=== PATIENT | female | born 1955 | race Hispanic/Latino ===

== ENCOUNTER 2018-03-08 07:12 | Emergency (ER) | payer OTHER, MEDICARE ==
[~2018-03-08 07:12] MED LIST: AMLO10TA4 PO; ASPI-555 PO; ATEN100T PO; ESOM40VI2 IV; GLIP10TA9 PO; INSLAN SQ; MECL-129 PO; METF850T2 PO; MONT10TA24 PO; MVIT PO; OMEG1CAP6 PO; SIMV20TA6 PO; SITA100T12 PO; TRAM50TA4 PO; VALS1TAB79 PO
[2018-03-08 08:00] LABS: BASOPHILS % (AUTO) 0.6 % (0.0-5.0); EOSINOPHILS % (AUTO) 1.7 % (0.0-8.0); HEMATOCRIT 30.5 % (36-48); LYMPHOCYTES % (AUTO) 25.7 % (21.0-51.0); MEAN CORPUSCULAR HEMOGLOBIN 26.4 pg (27.0-33.0); MEAN CORPUSCULAR HGB CONC 34.1 g/dL (32.0-36.0); MEAN CORPUSCULAR VOLUME 77.5 fL (79-99); MONOCYTES % (AUTO) 4.8 % (3.0-13.0); NEUTROPHILS % (AUTO) 67.2 % (40.0-77.0); PLATELET COUNT (AUTO) 331 K/uL (130-400); RED BLOOD CELL COUNT(AUTO) 3.94 MIL/uL (4.00-5.50); RED CELL DISTRIBUTION WIDTH 15.5 % (11.0-15.5); WHITE BLOOD COUNT (AUTO) 8.1 K/uL (4.8-10.8)
[2018-03-08 08:14] LABS: APPEARANCE,URINE Clear (CLEAR); BILIRUBIN,URINE Negative (NEGATIVE); COLOR,URINE Yellow (YELLOW); GLUCOSE, URINE (UA) Negative (NEGATIVE); KETONES,URINE Negative (NEGATIVE); LEUKOCYTE ESTERASE ,URINE Negative (NEGATIVE); NITRATE,URINE Negative (NEGATIVE); OCCULT BLOOD,URINE Negative (NEGATIVE); PH,URINE 6.5 (5.0-8.0); PROTEIN,URINE POS 2+ (NEGATIVE); UROBILINOGEN,URINE 0.2 mg/dL (0.2-1.0)
[2018-03-08 08:17] LABS: CARBON DIOXIDE 24 mmol/L (21-32); CHLORIDE 103 mmol/L (101-111); CREATININE 0.9 mg/dL (0.5-1.5); GLOMERULAR FILTR. RATE CALC 67 mL/min (>60); GLUCOSE,RANDOM 211 mg/dL (70-105); POTASSIUM 3.9 mmol/L (3.5-5.1); SODIUM SERUM 139 mmol/L (136-145); UREA NITROGEN, BLOOD 22 mg/dL (7-18)
[2018-03-08 08:19] LABS: INR 0.95 (0.85-1.15); PARTIAL THROMBOPLASTIN TIME 27.2 SEC (26.3-35.5)
[2018-03-08 08:29] LABS: ALANINE AMINOTRANSFERASE 18 U/L (12-78); ALBUMIN 3.4 g/dL (3.5-5.0); ASPARTATE AMINOTRANSFERASE 12 U/L (10-37); BILIRUBIN,TOTAL 0.2 mg/dL (0.2-1.0); CREATINE KINASE MB < 0.5 ng/mL (0.5-3.6); CREATINE KINASE, TOTAL 35 U/L (21-232); TOTAL PROTEIN, SERUM 6.8 g/dL (6.0-8.3)
[2018-03-08 08:39] LABS: BACTERIA,URINE None Seen /HPF (None Seen); RBC,URINE None Seen /HPF (0-1); WBC,URINE None Seen /HPF (0-1)
[2018-03-08 08:41] LABS: SQUAMOUS EPITHELIAL CELL,UR Rare /HPF (0-2)
== END 2018-03-08 10:31 | disposition home or self-care (01) ==
LOC: EDH 07:12
DX: H81.10 Benign paroxysmal vertigo, unspecified ear (principal); R55 Syncope and collapse; E11.9 Type 2 diabetes mellitus without complications; I10 Essential (primary) hypertension; R53.1 Weakness; E78.5 Hyperlipidemia, unspecified; Z79.4 Long term (current) use of insulin; Z90.49 Acquired absence of other specified parts of digestive tract; Z90.710 Acquired absence of both cervix and uterus
CPT/HCPCS: 36415; 71045; 80053; 81001; 82550; 82553; 84484; 85025; 85610; 85730; 93005; 96360; 96361

== ENCOUNTER → 2018-03-30 | Outpatient (CLI) | payer OTHER | END | disposition home or self-care (01) | LOC: OIH 13:26 | PROVIDERS: ATTEND Internal Medicine Cardiovascular Disease | DX: Z13.6 Encounter for screening for cardiovascular disorders (principal) | CPT/HCPCS: 75571 ==

== ENCOUNTER → 2018-09-18 | Outpatient (CLI) | payer OTHER, MEDICARE ==
[~2018-09-18] VITALS: Ht 165.1 cm; Wt 100.7 kg
[~2018-09-18] MED LIST changes: +ESOM40CA54 PO; -ESOM40VI2 IV; +FERR325T22 PO; +HYDR-3420 PO; +METF-445 PO; -METF850T2 PO; +METO10TA3 PO; +ONDA4TAB10 PO; +REGADENOSON 0.4 MG/5 ML PF SYG IVP SCH; +TIZA4TAB4 PO
== END | disposition home or self-care (01) ==
LOC: SHCH 07:52
PROVIDERS: ATTEND Internal Medicine Cardiovascular Disease
DX: I10 Essential (primary) hypertension (principal); R06.00 Dyspnea, unspecified; I49.5 Sick sinus syndrome; R10.13 Epigastric pain
CPT/HCPCS: 78452; 93017; 96374; A9500 ×2; J2785

== ENCOUNTER 2019-04-17 13:59 | Emergency (ER) | payer OTHER, MEDICARE ==
[~2019-04-17 13:59] MED LIST changes: -REGADENOSON 0.4 MG/5 ML PF SYG IVP SCH
[2019-04-17] MEDS ORDERED: IBUPROFEN 200 MG TAB ONE (14:46)
[2019-04-17] MEDS ORDERED: IBUPROFEN 400 MG TABLET ONE (14:46)
[2019-04-17] MEDS ORDERED: CYCLOBENZAPRINE HCL 10 MG TABLET ONE (14:47)
== END 2019-04-17 15:34 | disposition home or self-care (01) ==
LOC: EDH 13:59
DX: S29.012A Strain of muscle and tendon of back wall of thorax, initial encounter (principal); I10 Essential (primary) hypertension; E11.9 Type 2 diabetes mellitus without complications; E78.5 Hyperlipidemia, unspecified; Z90.710 Acquired absence of both cervix and uterus; Z90.49 Acquired absence of other specified parts of digestive tract; Z95.1 Presence of aortocoronary bypass graft; Z98.890 Other specified postprocedural states; Z79.4 Long term (current) use of insulin; V49.09XA Driver injured in collision with other motor vehicles in nontraffic accident, initial encounter; Y93.89 Activity, other specified; Y92.410 Unspecified street and highway as the place of occurrence of the external cause; Y99.8 Other external cause status
CPT/HCPCS: 72170

== ENCOUNTER 2019-08-17 10:42 | Emergency (ER) | payer OTHER, MEDICARE ==
[~2019-08-17 10:42] MED LIST changes: -TIZA4TAB4 PO; +TIZA4TAB5 PO
[2019-08-17] MEDS ORDERED: MORPHINE SULFATE 4 MG/1ML SYG ONE (11:13)
[2019-08-17] MEDS ORDERED: ONDANSETRON HCL 4 MG/2 ML VIAL ONE (11:13)
[2019-08-17] MEDS ORDERED: SODIUM CHLORIDE 0.9% 500ML 500 ML IV ONE (11:14)
[2019-08-17 11:15] LABS: BASOPHILS % (AUTO) 0.6 % (0.0-5.0); EOSINOPHILS % (AUTO) 2.7 % (0.0-8.0); HEMATOCRIT 31.7 % (36-48); LYMPHOCYTES % (AUTO) 29.2 % (21.0-51.0); MEAN CORPUSCULAR HEMOGLOBIN 28.6 pg (27.0-33.0); MEAN CORPUSCULAR HGB CONC 33.6 g/dL (32.0-36.0); MEAN CORPUSCULAR VOLUME 84.9 fL (79-99); MONOCYTES % (AUTO) 6.2 % (3.0-13.0); NEUTROPHILS % (AUTO) 61.3 % (40.0-77.0); NUCLEATED RED BLOOD CELLS 0.1 % (0.0-0.19); PLATELET COUNT (AUTO) 239 K/uL (130-400); RED BLOOD CELL COUNT(AUTO) 3.73 MIL/uL (4.00-5.50); RED CELL DISTRIBUTION WIDTH 14.1 % (11.0-15.5); WHITE BLOOD COUNT (AUTO) 8.7 K/uL (4.8-10.8)
[2019-08-17 11:37] LABS: CREATININE 1.2 mg/dL (0.5-1.5); POTASSIUM 4.3 mmol/L (3.5-5.1)
[2019-08-17 11:43] LABS: ALBUMIN 3.3 g/dL (3.5-5.0); BILIRUBIN,TOTAL 0.3 mg/dL (0.2-1.0); TOTAL PROTEIN, SERUM 6.4 g/dL (6.0-8.3)
[2019-08-17 11:49] LABS: APPEARANCE,URINE Cloudy (CLEAR); BILIRUBIN,URINE Small (NEGATIVE); COLOR,URINE Dark Yellow (YELLOW); GLUCOSE, URINE (UA) Negative (NEGATIVE); KETONES,URINE Trace mg/dL (NEGATIVE); LEUKOCYTE ESTERASE ,URINE Small (NEGATIVE); NITRATE,URINE Positive (NEGATIVE); OCCULT BLOOD,URINE Negative (NEGATIVE); PROTEIN,URINE POS 1+ mg/dL (NEGATIVE)
[2019-08-17 12:25] LABS: BACTERIA,URINE Few /HPF (None Seen); MUCUS,URINE Many LPF (None Seen); RBC,URINE None Seen /HPF (0-1)
[2019-08-17] MEDS ORDERED: SODIUM CHLORIDE 0.9% 100 ML IV ONE (12:59)
[2019-08-17] MEDS ORDERED: CEFTRIAXONE SODIUM 1 GM ONE (12:59)
[2019-08-17] MEDS ORDERED: SODIUM CHLORIDE 0.9% 50 ML IV ONE (13:02)
== END 2019-08-17 14:33 | disposition home or self-care (01) ==
LOC: EDH 10:42
DX: N39.0 Urinary tract infection, site not specified (principal); G89.29 Other chronic pain; M54.9 Dorsalgia, unspecified; E11.9 Type 2 diabetes mellitus without complications; I10 Essential (primary) hypertension; E78.5 Hyperlipidemia, unspecified; Z90.49 Acquired absence of other specified parts of digestive tract; Z90.710 Acquired absence of both cervix and uterus; Z96.89 Presence of other specified functional implants
CPT/HCPCS: 36415; 74176; 80053; 81001; 85025; 96374; 96375; 99285; J0696; J2270; J2405; J7040

== ENCOUNTER 2019-08-21 15:39 | Emergency (ER) | payer OTHER, MEDICARE ==
[2019-08-21] MEDS ORDERED: KETOROLAC TROMETHAMINE 15MG/ML ONE (16:43)
[2019-08-21] MEDS ORDERED: DIAZEPAM 2 MG TAB ONE (16:44)
[2019-08-21 16:53] LABS: APPEARANCE,URINE Clear (CLEAR); BILIRUBIN,URINE Negative (NEGATIVE); COLOR,URINE Dark Yellow (YELLOW); GLUCOSE, URINE (UA) Negative (NEGATIVE); KETONES,URINE Negative (NEGATIVE); LEUKOCYTE ESTERASE ,URINE Negative (NEGATIVE); NITRATE,URINE Negative (NEGATIVE); OCCULT BLOOD,URINE Negative (NEGATIVE); PH,URINE 5.5 (5.0-8.0); PROTEIN,URINE POS 1+ mg/dL (NEGATIVE); UROBILINOGEN,URINE 0.2 mg/dL (0.2-1.0)
[2019-08-21 16:58] LABS: BASOPHILS % (AUTO) 0.9 % (0.0-5.0); EOSINOPHILS % (AUTO) 2.2 % (0.0-8.0); HEMATOCRIT 31.1 % (36-48); LYMPHOCYTES % (AUTO) 31.8 % (21.0-51.0); MEAN CORPUSCULAR HEMOGLOBIN 28.2 pg (27.0-33.0); MEAN CORPUSCULAR HGB CONC 33.6 g/dL (32.0-36.0); MONOCYTES % (AUTO) 4.2 % (3.0-13.0); NEUTROPHILS % (AUTO) 60.9 % (40.0-77.0); PLATELET COUNT (AUTO) 261 K/uL (130-400); RED CELL DISTRIBUTION WIDTH 14.6 % (11.0-15.5); WHITE BLOOD COUNT (AUTO) 8.8 K/uL (4.8-10.8)
[2019-08-21] MEDS ORDERED: IOHEXOL-350 75 ML VIAL IV ONE (17:00)
[2019-08-21 17:04] LABS: BACTERIA,URINE Rare /HPF (None Seen); RBC,URINE 0-1 /HPF (0-1); SQUAMOUS EPITHELIAL CELL,UR Rare /HPF (0-2); WBC,URINE 0-1 /HPF (0-1)
[2019-08-21 17:13] LABS: CREATININE 1.2 mg/dL (0.5-1.5); POTASSIUM 3.9 mmol/L (3.5-5.1)
[2019-08-21 17:18] LABS: ALBUMIN 3.3 g/dL (3.5-5.0); BILIRUBIN,TOTAL 0.2 mg/dL (0.2-1.0); TOTAL PROTEIN, SERUM 6.4 g/dL (6.0-8.3)
== END 2019-08-21 18:57 | disposition home or self-care (01) ==
LOC: EDH 15:39
DX: G89.29 Other chronic pain (principal); M54.5 Low back pain; R30.0 Dysuria; E11.9 Type 2 diabetes mellitus without complications; E78.5 Hyperlipidemia, unspecified; I10 Essential (primary) hypertension; Z90.710 Acquired absence of both cervix and uterus; Z98.890 Other specified postprocedural states; Z95.0 Presence of cardiac pacemaker
CPT/HCPCS: 36415; 74177; 80053; 81001; 85025; 96374; 99285; J1885; Q9967

== ENCOUNTER 2019-10-03 08:22 | Inpatient (IN) | payer OTHER, MEDICARE ==
[~2019-10-03] VITALS: Ht 157.5 cm; Wt 100.4 kg
[~2019-10-03 08:22] MED LIST changes: +SIMV-43 PO; -SIMV20TA6 PO
[2019-10-03] MEDS ORDERED: BENZONATATE 100 MG CAPSULE PO ONE (08:45)
[2019-10-03 09:16] LABS: BASOPHILS % (AUTO) 0.5 % (0.0-5.0); HEMATOCRIT 32.2 % (36-48); LYMPHOCYTES % (AUTO) 28.3 % (21.0-51.0); MEAN CORPUSCULAR HGB CONC 32.7 g/dL (32.0-36.0); MEAN CORPUSCULAR VOLUME 82.5 fL (79-99); MONOCYTES % (AUTO) 4.8 % (3.0-13.0); NEUTROPHILS % (AUTO) 64.4 % (40.0-77.0); PLATELET COUNT (AUTO) 256 K/uL (130-400); RED CELL DISTRIBUTION WIDTH 14.4 % (11.0-15.5); WHITE BLOOD COUNT (AUTO) 7.8 K/uL (4.8-10.8)
[2019-10-03 09:22] LABS: POTASSIUM 3.8 mmol/L (3.5-5.1)
[2019-10-03] MEDS ORDERED: DEXAMETHASONE SOD PHOSPHATE 10MG/ML 1ML VIAL ONE (09:30)
[2019-10-03] MEDS ORDERED: IPRATROPIUM/ALBUTEROL SULFATE 3 ML SOLUTION IH ONE ×3 (09:37→21:54)
[2019-10-03 09:48] LABS: B-TYPE NATRIURETIC PEPTIDE 567 pg/mL (0-100)
[2019-10-03] MEDS ORDERED: KETOROLAC TROMETHAMINE 15MG/ML ONE (09:49)
[2019-10-03] MEDS ORDERED: HYDROCODONE/ACETAMINOPHEN 5/325 MG TAB ONE (11:47)
[2019-10-03] MEDS ORDERED: FUROSEMIDE 10 MG/ML 4ML VIAL ONE (11:47)
[2019-10-03] MEDS ORDERED: GUAIFENESIN-CODEINE 5 ML SYRUP ONE (14:12)
[2019-10-03] MEDS ORDERED: ZOSYN 3.375GM+NS 50ML 50 ML IV ONE ×2 (14:23→21:37)
[2019-10-03 14:32] LABS: APPEARANCE,URINE Clear (CLEAR); BILIRUBIN,URINE Negative (NEGATIVE); COLOR,URINE Yellow (YELLOW); GLUCOSE, URINE (UA) Negative (NEGATIVE); KETONES,URINE Negative (NEGATIVE); LEUKOCYTE ESTERASE ,URINE Negative (NEGATIVE); NITRATE,URINE Negative (NEGATIVE); OCCULT BLOOD,URINE Negative (NEGATIVE); PROTEIN,URINE Negative (NEGATIVE); UROBILINOGEN,URINE 0.2 mg/dL (0.2-1.0)
[2019-10-03 15:23] LABS: ABG BASE EXCESS -2.8 mmol/L (-2.0-3.0); ABG HCO3 20.8 mmol/L (21.0-28.0); ABG OXYGEN SATURATION 94.7 % (95.0-99.0); ABG PCO2 33 mmHg (32-45)
[2019-10-03] MEDS ORDERED: FUROSEMIDE 10 MG/ML 2ML VIAL IVP SCH (17:00)
[2019-10-03] MEDS ORDERED: ACETAMINOPHEN 325 MG TAB PO PRN ×2 (17:30)
[2019-10-03] MEDS ORDERED: CLONIDINE HCL 0.1 MG TABLET PO PRN (17:30)
[2019-10-03] MEDS ORDERED: POTASSIUM CHLORIDE 20MEQ/100ML 100 ML IV PRN (17:30)
[2019-10-03] MEDS ORDERED: DEXTROSE 50%-WATER 50 ML DISP.SYRIN IV PRN (17:30)
[2019-10-03] MEDS ORDERED: MAG HYDROX/AL HYDROX/SIMETH ES 30 ML SUSP UDCUP PO PRN (17:30)
[2019-10-03] MEDS ORDERED: GLUCAGON 1MG KIT 1 MG ML IM PRN (17:30)
[2019-10-03] MEDS ORDERED: LIDOCAINE HCL-MPF 1% 2ML VIAL IJ PRN (17:30)
[2019-10-03] MEDS ORDERED: SODIUM CHLORIDE 0.9% 10 ML VIAL IVP SCH (17:30)
[2019-10-03] MEDS ORDERED: NITROGLYCERIN 0.4 MG SL TAB SL PRN (17:30)
[2019-10-03] MEDS ORDERED: POTASSIUM CHLORIDE 10% ELIXIR 20 MEQ/15 ML UDCUP PO PRN (17:30)
[2019-10-03] MEDS ORDERED: LACTULOSE 20 GM/30 ML UDCUP PO PRN (17:30)
[2019-10-03] MEDS ORDERED: FLUTICASONE PROP EN (18:07)
[2019-10-03] MEDS ORDERED: VERA120T13 PO (18:07)
[2019-10-03] MEDS ORDERED: DICL2100G TP (18:07)
[2019-10-03] MEDS ORDERED: LOSA1TAB42 PO (18:07)
[2019-10-03 18:18] VITALS: BP 135/63
[2019-10-03] MEDS: IPRATROPIUM/ALBUTEROL SULFATE 3 ML SOLUTION IH SCH ×2 (18:23→21:59)
[2019-10-03] MEDS: FUROSEMIDE 10 MG/ML 2ML VIAL IVP SCH (21:00)
[2019-10-03] MEDS: LEVOFLOXACIN 750 MG TABLET PO SCH (21:00)
[2019-10-03] MEDS ORDERED: INSULIN R PO SSI SQ SCH (21:00)
[2019-10-03] MEDS ORDERED: FUROSEMIDE 10 MG/ML 2ML VIAL ONE (21:37)
[2019-10-03] MEDS ORDERED: LEVOFLOXACIN 750 MG/D5W 150 ML 150 ML ONE (21:38)
[2019-10-03] MEDS: ZOSYN 3.375GM+NS 50ML 50 ML IV SCH (22:00)
[2019-10-04] VITALS (7 sets, daily range): BP systolic 135–168; BP diastolic 65–87
[2019-10-04] MEDS ORDERED: INSULIN HUMULIN R 100 UNIT/ML 3ML ONE (01:59)
[2019-10-04] MEDS: INSULIN HUMULIN R 100 UNIT/ML 3ML SQ SCH ×6 (02:00→20:40)
[2019-10-04] MEDS: IPRATROPIUM/ALBUTEROL SULFATE 3 ML SOLUTION IH SCH ×6 (02:24→21:09)
[2019-10-04] MEDS ORDERED: SODIUM CHLORIDE 3% FOR INHALATION 4 ML/AMP VIAL.NEB IH ONE ×3 (02:31→10:14)
[2019-10-04] MEDS ORDERED: HYDROCODONE/ACETAMINOPHEN 5/325 MG TAB ONE (04:31)
[2019-10-04 04:49] LABS: HEMATOCRIT 29.2 % (36-48); MEAN CORPUSCULAR HEMOGLOBIN 27.8 pg (27.0-33.0); MEAN CORPUSCULAR HGB CONC 33.2 g/dL (32.0-36.0); MEAN CORPUSCULAR VOLUME 83.9 fL (79-99); PLATELET COUNT (AUTO) 219 K/uL (130-400); RED BLOOD CELL COUNT(AUTO) 3.49 MIL/uL (4.00-5.50); RED CELL DISTRIBUTION WIDTH 14.5 % (11.0-15.5); WHITE BLOOD COUNT (AUTO) 6.6 K/uL (4.8-10.8)
[2019-10-04 04:55] LABS: CREATININE 1.8 mg/dL (0.5-1.5); POTASSIUM 3.2 mmol/L (3.5-5.1)
[2019-10-04 05:04] LABS: B-TYPE NATRIURETIC PEPTIDE 883 pg/mL (0-100)
[2019-10-04] MEDS: ZOSYN 3.375GM+NS 50ML 50 ML IV SCH ×3 (05:41→20:14)
[2019-10-04] MEDS ORDERED: INSULIN HUMULIN R 100 UNIT/ML 3ML SQ SCH (06:58)
[2019-10-04] MEDS: FAMOTIDINE 20MG TAB 20 MG TAB PO SCH (10:21)
[2019-10-04] MEDS: ENOXAPARIN SODIUM 40 MG/0.4 ML SYRINGE SQ SCH (10:22)
[2019-10-04] MEDS: FUROSEMIDE 10 MG/ML 2ML VIAL IVP SCH (10:23)
[2019-10-04] MEDS: HYDROCODONE/ACETAMINOPHEN 5/325 MG TAB PO PRN (10:54)
[2019-10-04] MEDS: GUAIFENESIN-CODEINE 5 ML SYRUP PO PRN (10:54)
[2019-10-04] MEDS: POTASSIUM CHLORIDE 20 MEQ ERTAB PO PRN (12:16)
[2019-10-04 12:58] LABS: APPEARANCE,URINE Clear (CLEAR); BILIRUBIN,URINE Negative (NEGATIVE); COLOR,URINE Yellow (YELLOW); GLUCOSE, URINE (UA) Negative (NEGATIVE); KETONES,URINE Negative (NEGATIVE); LEUKOCYTE ESTERASE ,URINE Trace (NEGATIVE); NITRATE,URINE Negative (NEGATIVE); OCCULT BLOOD,URINE Negative (NEGATIVE); PROTEIN,URINE POS 1+ mg/dL (NEGATIVE); UROBILINOGEN,URINE 0.2 mg/dL (0.2-1.0)
[2019-10-04 13:09] LABS: BACTERIA,URINE None Seen /HPF (None Seen); RBC,URINE None Seen /HPF (0-1); WBC,URINE 0-1 /HPF (0-1)
--- NOTE | 2019-10-04 15:08 | NUR ---
WILFRED PLAN PATIENT GETTING AFB AND TB TESTING ON AIRFLOW ISOLATION. PAUL WILL CONTINUE TO FOLLOW. Addendum: 10/04/19 at 1510 by MIROSLAVA LOREDO RN CM Amended: Links added.
--- NOTE | 2019-10-04 15:35 | NUR ---
PPD-PPD PLACED TO LEFT ANTERIOR FOREARM. PT TOLERATED. NO BLEEDING OR HEMATOMA NOTED. IC WILL READ PPD ON SUNDAY 10/07. IF DC PLAN SOONER, HAVE IRONWORKER MACHINE OPERATOR READ ON 10/06 AT EARLIEST.
[2019-10-04] MEDS: PHENAZOPYRIDINE HCL 200 MG TABLET PO SCH ×2 (16:19→20:13)
--- NOTE | 2019-10-04 17:28 | NUR ---
DR. WILLIS IS MAKING HIS ROUNDS. PER MD, NODULES ARE TOO SMALL TO BIOPSY/BRONCH. HE SUGGESTS REMOVING PLEURAL FLUID AND SENDING FLUID FOR CYTOLOGY OR IF THIS CANNOT BE DONE, PATIENT TO HAVE A REPEAT CT SCAN IN 3-6 MONTHS.
--- NOTE | 2019-10-04 21:00 | NUR ---
PT STATES SHE HAS HAD DRY COUGH. UNABLE TO BRING UP SPUTUM WHICH IS PENDING TO COLLECT. CONTINUES ON AIRBORNE PRECAUTIONS. AA03. PERRLA. AMBULATORY. REQUIRES NO ASSISTANCE. ON ZOSYN. STATES NO PAIN.
[2019-10-05] VITALS (7 sets, daily range): BP systolic 136–159; BP diastolic 72–84
[2019-10-05] MEDS: IPRATROPIUM/ALBUTEROL SULFATE 3 ML SOLUTION IH SCH ×4 (01:04→21:45)
[2019-10-05 03:54] LABS: BASOPHILS % (AUTO) 0.1 % (0.0-5.0); EOSINOPHILS % (AUTO) 0.1 % (0.0-8.0); HEMATOCRIT 28.5 % (36-48); LYMPHOCYTES % (AUTO) 23.4 % (21.0-51.0); MEAN CORPUSCULAR HGB CONC 32.6 g/dL (32.0-36.0); MEAN CORPUSCULAR VOLUME 82.9 fL (79-99); MONOCYTES % (AUTO) 5.8 % (3.0-13.0); NEUTROPHILS % (AUTO) 70.6 % (40.0-77.0); PLATELET COUNT (AUTO) 225 K/uL (130-400); RED BLOOD CELL COUNT(AUTO) 3.44 MIL/uL (4.00-5.50); RED CELL DISTRIBUTION WIDTH 14.5 % (11.0-15.5); WHITE BLOOD COUNT (AUTO) 10.7 K/uL (4.8-10.8)
[2019-10-05 04:03] LABS: INR 1.06 (0.85-1.15); PARTIAL THROMBOPLASTIN TIME 24.2 SEC (26.3-35.5); PROTHROMBIN TIME 11.1 SEC (9.6-11.6)
[2019-10-05 04:21] LABS: ALANINE AMINOTRANSFERASE 16 U/L (12-78); ALBUMIN 2.8 g/dL (3.5-5.0); ASPARTATE AMINOTRANSFERASE 16 U/L (10-37); BILIRUBIN,TOTAL 0.4 mg/dL (0.2-1.0); CARBON DIOXIDE 29 mmol/L (21-32); CHLORIDE 106 mmol/L (101-111); CREATININE 1.3 mg/dL (0.5-1.5); GLOMERULAR FILTR. RATE CALC 44 mL/min (>60); GLUCOSE,RANDOM 213 mg/dL (70-105); PHOSPHORUS 4.2 mg/dL (2.5-4.9); POTASSIUM 3.7 mmol/L (3.5-5.1); SODIUM SERUM 143 mmol/L (136-145); THYROID STIMULATING HORMONE 0.42 uIU/mL (0.36-3.74); TOTAL PROTEIN, SERUM 5.7 g/dL (6.0-8.3); UREA NITROGEN, BLOOD 32 mg/dL (7-18)
[2019-10-05] MEDS ORDERED: MAGNESIUM 2GM PREMIX 50ML 50 ML IV ONE (05:00)
[2019-10-05] MEDS ORDERED: MAGNESIUM 2GM PREMIX 50ML 50 ML IV PRN (05:00)
[2019-10-05] MEDS: POTASSIUM CHLORIDE 20 MEQ ERTAB PO PRN (05:02)
[2019-10-05] MEDS: ZOSYN 3.375GM+NS 50ML 50 ML IV SCH ×3 (05:02→21:47)
[2019-10-05] MEDS: INSULIN HUMULIN R 100 UNIT/ML 3ML SQ SCH ×4 (06:32→21:29)
[2019-10-05] MEDS: ENOXAPARIN SODIUM 40 MG/0.4 ML SYRINGE SQ SCH (07:11)
[2019-10-05] MEDS: FAMOTIDINE 20MG TAB 20 MG TAB PO SCH (07:11)
[2019-10-05] MEDS: PHENAZOPYRIDINE HCL 200 MG TABLET PO SCH ×4 (07:11→21:00)
--- NOTE | 2019-10-05 07:30 | NUR ---
ASSESSMENT PT IS AAOX3 DENIES CP DENIES SOB DENIES NV NO COMPLAINTS, RESTING IN BED. CALL LIGHT WITHIN REACH. AM MEDS GIVEN.
[2019-10-05] MEDS: HYDROCODONE/ACETAMINOPHEN 5/325 MG TAB PO PRN (17:02)
--- NOTE | 2019-10-05 18:30 | NUR ---
STATUS NO COMPLAINTS DENIES PAIN. RESTING IN BED, CALL LIGHT WITHIN REACH.
[2019-10-05] MEDS: LEVOFLOXACIN 750 MG TABLET PO SCH (21:22)
[2019-10-05] MEDS: HYDRALAZINE HCL 10 MG TABLET PO SCH (21:23)
[2019-10-05] MEDS: SIMVASTATIN 20 MG TABLET PO SCH (21:23)
[2019-10-05] MEDS: INSULIN GLARGINE 100 UNITS/ML 10 ML VIAL SQ SCH (21:30)
[2019-10-06] MEDS: INSULIN HUMULIN R 100 UNIT/ML 3ML SQ SCH ×5 (01:54→21:43)
[2019-10-06] MEDS: GUAIFENESIN-CODEINE 5 ML SYRUP PO PRN (01:58)
[2019-10-06 04:31] VITALS: BP 137/80
[2019-10-06 04:35] LABS: BASOPHILS % (AUTO) 0.5 % (0.0-5.0); HEMATOCRIT 29.8 % (36-48); LYMPHOCYTES % (AUTO) 37.6 % (21.0-51.0); MEAN CORPUSCULAR HEMOGLOBIN 27.2 pg (27.0-33.0); MEAN CORPUSCULAR HGB CONC 32.5 g/dL (32.0-36.0); MEAN CORPUSCULAR VOLUME 83.7 fL (79-99); MONOCYTES % (AUTO) 7.2 % (3.0-13.0); NEUTROPHILS % (AUTO) 51.7 % (40.0-77.0); PLATELET COUNT (AUTO) 254 K/uL (130-400); RED BLOOD CELL COUNT(AUTO) 3.56 MIL/uL (4.00-5.50); RED CELL DISTRIBUTION WIDTH 14.8 % (11.0-15.5); WHITE BLOOD COUNT (AUTO) 8.9 K/uL (4.8-10.8)
[2019-10-06 04:44] LABS: POTASSIUM 4.2 mmol/L (3.5-5.1)
[2019-10-06 04:45] LABS: B-TYPE NATRIURETIC PEPTIDE 828 pg/mL (0-100)
[2019-10-06] MEDS: ONDANSETRON HCL 4 MG/2 ML VIAL IVP PRN (04:51)
[2019-10-06] MEDS: ZOSYN 3.375GM+NS 50ML 50 ML IV SCH ×3 (05:45→21:14)
[2019-10-06 07:25] VITALS: BP 154/79
[2019-10-06] MEDS: IPRATROPIUM/ALBUTEROL SULFATE 3 ML SOLUTION IH SCH ×3 (07:44→22:36)
--- NOTE | 2019-10-06 08:00 | NUR ---
ASSESSMENT PT IS AAOX3 DENIES CP DENIES SOB DENIES NV NO COMPLAINTS, RESTING, SITTING UPRIGHT AT BEDSIDE EATING BREAKFAST. CALL LIGHT WITHIN REACH. AM MEDS GIVEN.
[2019-10-06] MEDS: PHENAZOPYRIDINE HCL 200 MG TABLET PO SCH ×2 (08:03→12:58)
[2019-10-06] MEDS: ASPIRIN 81 MG EC TAB PO SCH (08:03)
[2019-10-06] MEDS: HYDRALAZINE HCL 10 MG TABLET PO SCH ×3 (08:03→21:14)
[2019-10-06] MEDS: FAMOTIDINE 20MG TAB 20 MG TAB PO SCH (08:03)
[2019-10-06] MEDS: ATENOLOL 50 MG TABLET PO SCH (08:05)
[2019-10-06] MEDS: ENOXAPARIN SODIUM 40 MG/0.4 ML SYRINGE SQ SCH (08:07)
[2019-10-06] MEDS: HYDROCODONE/ACETAMINOPHEN 5/325 MG TAB PO PRN ×2 (08:56→23:58)
[2019-10-06 11:30] VITALS: BP 124/59
[2019-10-06 15:30] VITALS: BP 158/78
--- NOTE | 2019-10-06 18:00 | NUR ---
STATUS NO COMPLAINTS DENIES PAIN. SITTING IN CHAIR, CALL LIGHT WITHIN REACH.
[2019-10-06 20:16] VITALS: BP 143/68
[2019-10-06] MEDS: SIMVASTATIN 20 MG TABLET PO SCH (21:14)
[2019-10-06] MEDS: INSULIN GLARGINE 100 UNITS/ML 10 ML VIAL SQ SCH (21:44)
[2019-10-07] VITALS: BP 141/66
[2019-10-07] MEDS: ONDANSETRON HCL 4 MG/2 ML VIAL IVP PRN (03:42)
[2019-10-07 03:55] VITALS: BP 153/77
[2019-10-07 03:58] LABS: HEMATOCRIT 30.1 % (36-48); MEAN CORPUSCULAR HEMOGLOBIN 26.8 pg (27.0-33.0); MEAN CORPUSCULAR VOLUME 83.7 fL (79-99); PLATELET COUNT (AUTO) 245 K/uL (130-400); RED BLOOD CELL COUNT(AUTO) 3.59 MIL/uL (4.00-5.50); RED CELL DISTRIBUTION WIDTH 14.5 % (11.0-15.5)
[2019-10-07] MEDS: HYDROCODONE/ACETAMINOPHEN 5/325 MG TAB PO PRN (04:01)
[2019-10-07 04:18] LABS: MAGNESIUM 1.5 mg/dL (1.80-2.40); POTASSIUM 4.1 mmol/L (3.5-5.1)
[2019-10-07 04:28] LABS: B-TYPE NATRIURETIC PEPTIDE 711 pg/mL (0-100)
[2019-10-07] MEDS: ZOSYN 3.375GM+NS 50ML 50 ML IV SCH ×2 (05:08→13:48)
[2019-10-07] MEDS: INSULIN HUMULIN R 100 UNIT/ML 3ML SQ SCH ×3 (06:40→16:20)
[2019-10-07] MEDS: IPRATROPIUM/ALBUTEROL SULFATE 3 ML SOLUTION IH SCH (06:47)
--- NOTE | 2019-10-07 07:08 | NUR ---
Corina HEMPHILL PA-C, IN ROOM SPEAKING WITH PT.
--- NOTE | 2019-10-07 07:35 | NUR ---
RHONDA FAYE, IN ROOM SPEAKING WITH PT. QUESTIONS ANSWERED BY RHONDA.
[2019-10-07 07:57] VITALS: BP 149/68
[2019-10-07] MEDS: HYDRALAZINE HCL 10 MG TABLET PO SCH ×2 (09:48→13:45)
[2019-10-07] MEDS: ATENOLOL 50 MG TABLET PO SCH (09:48)
[2019-10-07] MEDS: FAMOTIDINE 20MG TAB 20 MG TAB PO SCH (09:48)
[2019-10-07] MEDS: ASPIRIN 81 MG EC TAB PO SCH (09:48)
[2019-10-07] MEDS: ENOXAPARIN SODIUM 40 MG/0.4 ML SYRINGE SQ SCH (09:49)
[2019-10-07] MEDS ORDERED: BUTALB/ACETAMINOPHEN/CAFFEINE 1 EACH TABLET PO PRN (10:40)
[2019-10-07 11:54] VITALS: BP 130/62
--- NOTE | 2019-10-07 14:45 | NUR ---
DC PLAN VISITED WITH PATIENT. PATIENT EAGER TO LEAVE SAYS GOING AMA. NURSE TRYING TO LET MAIL SORTING SUPERVISOR KNOW. DR. WILLIS SAID NO INTERVENTION F.U WITH CT IN 3 MONTHS. AFB NOT DONE TO SPUTUM. TB READ NEGATIVE. PENDING PACE MAKER INTERROGATION. PATIENT Addendum: 10/07/19 at 1448 by MIROSLAVA LOREDO RN CM Amended: Links added.
--- NOTE | 2019-10-07 16:30 | NUR ---
HL REMOVED, CATHETER INTACT. DISCHARGE INSTRUCTIONS GIVEN, PT. VERBALIZED UNDERSTANDING. DAUGHTER AT BEDSIDE.
[2019-10-07] MEDS ORDERED: IPRATROPIUM/ALBUTEROL SULFATE 3 ML SOLUTION IH PRN (18:00)
== END 2019-10-07 17:00 | disposition home or self-care (01) | DRG 291 ==
LOC: EDH 08:22 → OBSVTOIN 13:00 → EDHIP 13:00 → 2AH 23:57
PROVIDERS: ADMIT Internal Medicine; ATTEND Internal Medicine
DX: I11.0 Hypertensive heart disease with heart failure (principal); J18.9 Pneumonia, unspecified organism; I50.41 Acute combined systolic (congestive) and diastolic (congestive) heart failure; D64.9 Anemia, unspecified; E11.9 Type 2 diabetes mellitus without complications; E78.5 Hyperlipidemia, unspecified; I08.1 Rheumatic disorders of both mitral and tricuspid valves; Z79.4 Long term (current) use of insulin; Z79.82 Long term (current) use of aspirin; Z79.899 Other long term (current) drug therapy; Z90.710 Acquired absence of both cervix and uterus; Z95.0 Presence of cardiac pacemaker; Z90.49 Acquired absence of other specified parts of digestive tract
CPT/HCPCS: 36415; 36600; 70450; 71045; 71046; 71250; 80048; 80053; 81001; 81003; 82803; 82948; 83735; 83880; 84100; 84145; 84443; 85025; 85027; 85610; 85730; 87088; 87804; 93005; 93306; 93970; 94640; 94664; 94667; 94668; G0378; J1100; J1650; J1815; J1885; J1940; J1956; J2405; J2543; J3475

== ENCOUNTER 2019-10-14 02:39 | Observation (INO) | payer OTHER, MEDICARE ==
[~2019-10-14] VITALS: Ht 157.5 cm; Wt 97.6 kg
[~2019-10-14 02:39] MED LIST changes: -AMLO10TA4 PO; +DICL2100G TP; -FERR325T22 PO; +FLUTICASONE PROP EN; -MECL-129 PO; -METO10TA3 PO; -MONT10TA24 PO; -TIZA4TAB5 PO; -VALS1TAB79 PO
[2019-10-14] MEDS ORDERED: METHYLPREDNISOLONE SOD SUCC 125MG/2ML VIAL ONE (03:29)
[2019-10-14] MEDS ORDERED: MAG HYDROX/AL HYDROX/SIMETH ES 30 ML SUSP UDCUP ONE (03:29)
[2019-10-14] MEDS ORDERED: LIDOCAINE HCL 2% VISCOUS 15 ML UDCUP ONE (03:29)
[2019-10-14] MEDS ORDERED: ALBUTEROL SULFATE 0.083% 2.5 MG/3 ML INH IH ONE (03:37)
[2019-10-14 03:54] LABS: BASOPHILS % (AUTO) 0.6 % (0.0-5.0); EOSINOPHILS % (AUTO) 1.9 % (0.0-8.0); HEMATOCRIT 29.7 % (36-48); LYMPHOCYTES % (AUTO) 26.4 % (21.0-51.0); MEAN CORPUSCULAR HEMOGLOBIN 27.3 pg (27.0-33.0); MEAN CORPUSCULAR HGB CONC 32.5 g/dL (32.0-36.0); MEAN CORPUSCULAR VOLUME 83.8 fL (79-99); MONOCYTES % (AUTO) 6.3 % (3.0-13.0); NEUTROPHILS % (AUTO) 64.8 % (40.0-77.0); PLATELET COUNT (AUTO) 279 K/uL (130-400); RED BLOOD CELL COUNT(AUTO) 3.55 MIL/uL (4.00-5.50); RED CELL DISTRIBUTION WIDTH 15.1 % (11.0-15.5); WHITE BLOOD COUNT (AUTO) 8.5 K/uL (4.8-10.8)
[2019-10-14 04:05] LABS: CREATININE 1.3 mg/dL (0.5-1.5)
[2019-10-14 04:06] LABS: INR 1.02 (0.85-1.15); PARTIAL THROMBOPLASTIN TIME 28.7 SEC (26.3-35.5); PROTHROMBIN TIME 10.7 SEC (9.6-11.6)
[2019-10-14] MEDS ORDERED: ACETAMINOPHEN EXTRA STRENGTH 500 MG TABLET ONE (06:02)
[2019-10-14] MEDS ORDERED: ACETAMINOPHEN-CODEINE ELIXIR 5 ML UDCUP ONE (06:02)
[2019-10-14] MEDS ORDERED: FUROSEMIDE 10 MG/ML 4ML VIAL ONE (06:02)
[2019-10-14] MEDS ORDERED: METHYLPREDNISOLONE 4 MG TABLET PO SCH ×2 (07:30→21:00)
[2019-10-14] MEDS ORDERED: POTASSIUM CHLORIDE 20 MEQ ERTAB PO PRN (09:15)
[2019-10-14] MEDS ORDERED: DEXTROSE 50%-WATER 50 ML DISP.SYRIN IV PRN (09:15)
[2019-10-14] MEDS ORDERED: POTASSIUM CHLORIDE 10% ELIXIR 20 MEQ/15 ML UDCUP PO PRN (09:15)
[2019-10-14] MEDS ORDERED: ACETAMINOPHEN-CODEINE 300/30MG TAB PO PRN (09:15)
[2019-10-14] MEDS ORDERED: HYDRALAZINE HCL 20 MG/ML VIAL IV PRN (09:15)
[2019-10-14] MEDS ORDERED: MAG HYDROX/AL HYDROX/SIMETH ES 30 ML SUSP UDCUP PO PRN (09:15)
[2019-10-14] MEDS ORDERED: NITROGLYCERIN 0.4 MG SL TAB SL PRN (09:15)
[2019-10-14] MEDS ORDERED: GUAIFENESIN-DM 200/20 MG 10 ML PO PRN (09:15)
[2019-10-14] MEDS ORDERED: GLUCAGON 1MG KIT 1 MG ML IM PRN (09:15)
[2019-10-14] MEDS ORDERED: DIPHENHYDRAMINE HCL 25 MG CAPSULE PO PRN (09:15)
[2019-10-14] MEDS ORDERED: LIDOCAINE HCL-MPF 1% 2ML VIAL IV PRN (09:15)
[2019-10-14] MEDS ORDERED: ACETAMINOPHEN 325 MG TAB PO PRN (09:15)
[2019-10-14] MEDS ORDERED: POTASSIUM CHLORIDE 20MEQ/100ML 100 ML IV PRN (09:15)
[2019-10-14] MEDS ORDERED: ONDANSETRON HCL 4 MG/2 ML VIAL IV PRN (09:15)
[2019-10-14 09:20] VITALS: BP 143/92
[2019-10-14] MEDS ORDERED: HYDR12.530 PO (09:43)
[2019-10-14] MEDS ORDERED: INSU3INS3 SQ (09:43)
[2019-10-14] MEDS ORDERED: SODIUM CHLORIDE 3% FOR INHALATION 4 ML/AMP VIAL.NEB IH ONE (09:53)
[2019-10-14] MEDS: IPRATROPIUM/ALBUTEROL SULFATE 3 ML SOLUTION IH SCH ×4 (09:57→21:35)
[2019-10-14 11:00] VITALS: BP 154/75
[2019-10-14] MEDS: METHYLPREDNISOLONE 4 MG TABLET PO SCH ×2 (11:30→18:18)
[2019-10-14] MEDS: INSULIN HUMULIN R 100 UNIT/ML 3ML SQ SCH ×3 (11:53→21:18)
[2019-10-14] MEDS: SODIUM CHLORIDE 3% FOR INHALATION 4 ML/AMP VIAL.NEB IH SCH ×2 (14:13→17:55)
[2019-10-14] MEDS: NITROGLYCERIN 1GM/1 INCH PACKET TD SCH ×2 (15:26→21:15)
[2019-10-14] MEDS: HYDRALAZINE HCL 10 MG TABLET PO SCH ×2 (15:26→20:28)
[2019-10-14] MEDS: BENZONATATE 100 MG CAPSULE PO SCH ×2 (15:26→20:29)
[2019-10-14 16:00] VITALS: BP 150/94
[2019-10-14 19:15] VITALS: BP 135/66
[2019-10-14] MEDS: FUROSEMIDE 10 MG/ML 4ML VIAL IVP SCH (20:26)
[2019-10-14] MEDS: SIMVASTATIN 20 MG TABLET PO SCH (20:28)
[2019-10-14] MEDS: ACETAMINOPHEN 325 MG TAB PO PRN (20:28)
[2019-10-14] MEDS: HEPARIN SODIUM 5000UNIT/ML 1ML VIAL SQ SCH (20:36)
[2019-10-15] VITALS (7 sets, daily range): BP systolic 126–152; BP diastolic 55–91
[2019-10-15] MEDS: IPRATROPIUM/ALBUTEROL SULFATE 3 ML SOLUTION IH SCH ×6 (01:27→21:26)
[2019-10-15] MEDS: SODIUM CHLORIDE 3% FOR INHALATION 4 ML/AMP VIAL.NEB IH SCH ×4 (01:28→18:53)
[2019-10-15] MEDS: NITROGLYCERIN 1GM/1 INCH PACKET TD SCH ×4 (03:19→20:04)
[2019-10-15] MEDS: TRAMADOL HCL 50 MG TABLET PO PRN (03:21)
[2019-10-15 04:24] LABS: HEMOGLOBIN A1C 7.2 % (4.0-6.0)
[2019-10-15 04:43] LABS: CREATININE 1.4 mg/dL (0.5-1.5); POTASSIUM 3.8 mmol/L (3.5-5.1); THYROID STIMULATING HORMONE 0.64 uIU/mL (0.36-3.74)
[2019-10-15 04:44] LABS: BASOPHILS % (AUTO) 0.1 % (0.0-5.0); HEMATOCRIT 27.6 % (36-48); LYMPHOCYTES % (AUTO) 10.1 % (21.0-51.0); MEAN CORPUSCULAR HEMOGLOBIN 27.5 pg (27.0-33.0); MEAN CORPUSCULAR HGB CONC 33.1 g/dL (32.0-36.0); MEAN CORPUSCULAR VOLUME 83.3 fL (79-99); MONOCYTES % (AUTO) 6.4 % (3.0-13.0); NEUTROPHILS % (AUTO) 83.4 % (40.0-77.0); NUCLEATED RED BLOOD CELLS 0.1 % (0.0-0.19); PLATELET COUNT (AUTO) 270 K/uL (130-400); RED BLOOD CELL COUNT(AUTO) 3.32 MIL/uL (4.00-5.50)
[2019-10-15 05:31] LABS: % IRON SATURATION 4.5 % (22-44)
[2019-10-15] MEDS: INSULIN HUMULIN R 100 UNIT/ML 3ML SQ SCH ×4 (06:31→20:18)
[2019-10-15] MEDS ORDERED: METHYLPREDNISOLONE 4 MG TABLET PO SCH ×3 (07:30→21:00)
[2019-10-15] MEDS: ASPIRIN 81 MG EC TAB PO SCH (08:03)
[2019-10-15] MEDS: ACETAMINOPHEN 325 MG TAB PO PRN ×2 (08:03→20:14)
[2019-10-15] MEDS: PANTOPRAZOLE SODIUM 40 MG TABLET.DR PO SCH (08:03)
[2019-10-15] MEDS: HYDRALAZINE HCL 10 MG TABLET PO SCH ×3 (08:03→20:05)
[2019-10-15] MEDS: BENZONATATE 100 MG CAPSULE PO SCH ×3 (08:03→20:05)
[2019-10-15] MEDS: HYDROCHLOROTHIAZIDE 25 MG TABLET PO SCH (08:04)
[2019-10-15] MEDS: ATENOLOL 50 MG TABLET PO SCH (08:04)
[2019-10-15] MEDS: MULTIVITAMIN TABLET PO SCH (08:04)
[2019-10-15] MEDS: HEPARIN SODIUM 5000UNIT/ML 1ML VIAL SQ SCH ×2 (08:06→20:11)
[2019-10-15] MEDS: FUROSEMIDE 10 MG/ML 4ML VIAL IVP SCH ×2 (08:07→20:04)
[2019-10-15] MEDS: INSULIN GLARGINE 100 UNITS/ML 10 ML VIAL SQ SCH (08:07)
[2019-10-15] MEDS: FLUTICASONE PROPIONATE 50MCG/SPRAY 16 GM BOTTLE EN SCH (08:08)
[2019-10-15] MEDS: FERROUS SULFATE 325 MG TABLET.DR PO SCH ×2 (15:32→20:14)
[2019-10-15] MEDS: DOCUSATE SODIUM 100 MG CAP PO SCH (20:04)
[2019-10-15] MEDS: SIMVASTATIN 20 MG TABLET PO SCH (20:04)
[2019-10-16] MEDS: SODIUM CHLORIDE 3% FOR INHALATION 4 ML/AMP VIAL.NEB IH SCH ×3 (00:29→13:33)
[2019-10-16] MEDS: IPRATROPIUM/ALBUTEROL SULFATE 3 ML SOLUTION IH SCH ×4 (00:29→13:33)
[2019-10-16] MEDS: TRAMADOL HCL 50 MG TABLET PO PRN ×2 (01:31→10:15)
[2019-10-16] MEDS: NITROGLYCERIN 1GM/1 INCH PACKET TD SCH ×2 (02:38→08:45)
--- NOTE | 2019-10-16 02:38 | NUR ---
HEADACHE Pt refused Nitro pastes,states it gives her headache.
[2019-10-16 04:00] VITALS: BP 153/89
[2019-10-16 05:05] LABS: BASOPHILS % (AUTO) 0.2 % (0.0-5.0); HEMATOCRIT 28.4 % (36-48); LYMPHOCYTES % (AUTO) 14.1 % (21.0-51.0); MEAN CORPUSCULAR HEMOGLOBIN 27.4 pg (27.0-33.0); MEAN CORPUSCULAR HGB CONC 33.2 g/dL (32.0-36.0); MEAN CORPUSCULAR VOLUME 82.5 fL (79-99); MONOCYTES % (AUTO) 4.4 % (3.0-13.0); NEUTROPHILS % (AUTO) 81.3 % (40.0-77.0); PLATELET COUNT (AUTO) 305 K/uL (130-400); RED BLOOD CELL COUNT(AUTO) 3.44 MIL/uL (4.00-5.50); RED CELL DISTRIBUTION WIDTH 14.9 % (11.0-15.5); WHITE BLOOD COUNT (AUTO) 10.3 K/uL (4.8-10.8)
[2019-10-16 05:14] LABS: CREATININE 1.3 mg/dL (0.5-1.5); POTASSIUM 3.6 mmol/L (3.5-5.1)
[2019-10-16] MEDS: ACETAMINOPHEN 325 MG TAB PO PRN (05:21)
[2019-10-16] MEDS: METHYLPREDNISOLONE 4 MG TABLET PO SCH ×2 (06:17→11:58)
[2019-10-16] MEDS: INSULIN HUMULIN R 100 UNIT/ML 3ML SQ SCH ×2 (06:18→12:00)
[2019-10-16 07:51] VITALS: BP 149/64
--- NOTE | 2019-10-16 08:00 | NUR ---
NOTE AAOX3. DENIES SOB OR CHEST PAIN. BBS SLIGHT DIMINISHED THROUGHOUT. NO COUGH NOTED BUT REPORTS COUGH AT TIMES AT HOME. NO DISTRESS. NO N/V SLIGHT EDEMA TO BLE. WAS INSTRUCTED TO WEIGHT HERSELF DAILY BUT SAYS SHE DOES NOT HAVE A SCALE. INSTRUCTED TO GET ONE AND WEIGH HERSELF DAILY AND RECORD. WILL GO OVER INSTRUCTIONS UPON DISCHARGE IF SHE GOES HOME TODAY. POSSIBLE DC FOR SHE WAS TOLD BY PRIMARY MD SHE WOULD GO HOME TODAY.
[2019-10-16] MEDS: HYDRALAZINE HCL 10 MG TABLET PO SCH (09:00)
[2019-10-16] MEDS: HYDROCHLOROTHIAZIDE 25 MG TABLET PO SCH (10:12)
[2019-10-16] MEDS: DOCUSATE SODIUM 100 MG CAP PO SCH (10:12)
[2019-10-16] MEDS: MULTIVITAMIN TABLET PO SCH (10:12)
[2019-10-16] MEDS: BENZONATATE 100 MG CAPSULE PO SCH (10:13)
[2019-10-16] MEDS: ASPIRIN 81 MG EC TAB PO SCH (10:13)
[2019-10-16] MEDS: FERROUS SULFATE 325 MG TABLET.DR PO SCH (10:13)
[2019-10-16] MEDS: PANTOPRAZOLE SODIUM 40 MG TABLET.DR PO SCH (10:13)
[2019-10-16] MEDS: ATENOLOL 50 MG TABLET PO SCH (10:14)
[2019-10-16] MEDS: FUROSEMIDE 10 MG/ML 4ML VIAL IVP SCH (10:14)
[2019-10-16] MEDS: FLUTICASONE PROPIONATE 50MCG/SPRAY 16 GM BOTTLE EN SCH (10:16)
[2019-10-16] MEDS: HEPARIN SODIUM 5000UNIT/ML 1ML VIAL SQ SCH (10:30)
[2019-10-16] MEDS: INSULIN GLARGINE 100 UNITS/ML 10 ML VIAL SQ SCH (10:31)
[2019-10-16 11:38] VITALS: BP 139/84
[2019-10-16] MEDS ORDERED: DOCU-275 PO (15:13)
[2019-10-16] MEDS ORDERED: FERR324T4 PO (15:13)
[2019-10-16] MEDS ORDERED: PRED20TA3 PO (15:13)
[2019-10-16] MEDS ORDERED: METHYLPREDNISOLONE 4 MG TABLET PO SCH (16:30)
--- NOTE | 2019-10-16 16:30 | NUR ---
DISCHARGE DISCHARGE INSTRUCTIONS GIVEN AT THIS TIME. REFER TO DC SUMMARY FOR DETAILS. STABLE UPON LEAVING. STRESSED OUT THE IMPORTANCE OF WEIGHING HER SELF DAILY. ALSO WENT OVER THE HEART FAILURE SELF ASSESSMENT SHEET. ALSO INSTRUCTED HER TO CONTINUE WITH [facility] HOME DOSE THAT DR MAGAÑA HAD ORDERED FOR HER. DAUGHTER AT HER SIDE WHEN SHE WAS GIVEN THE INSTRUCTIONS.
[2019-10-17] MEDS ORDERED: METHYLPREDNISOLONE 4 MG TABLET PO SCH ×2 (07:30→11:30)
[2019-10-18] MEDS ORDERED: METHYLPREDNISOLONE 4 MG TABLET PO SCH ×3 (07:30→21:00)
[2019-10-19] MEDS ORDERED: METHYLPREDNISOLONE 4 MG TABLET PO SCH (07:30)
== END 2019-10-16 17:00 | disposition home or self-care (01) ==
LOC: EDH 02:39 → EDHIP 06:20 → 4DH 09:25
PROVIDERS: ADMIT Internal Medicine; ATTEND Internal Medicine
DX: I13.0 Hypertensive heart and chronic kidney disease with heart failure and stage 1 through stage 4 chronic kidney disease, or unspecified chronic kidney disease (principal); E11.22 Type 2 diabetes mellitus with diabetic chronic kidney disease; I50.23 Acute on chronic systolic (congestive) heart failure; N18.3 Chronic kidney disease, stage 3 (moderate); N17.9 Acute kidney failure, unspecified; R06.03 Acute respiratory distress; J90 Pleural effusion, not elsewhere classified; R05 Cough; E66.9 Obesity, unspecified; E78.5 Hyperlipidemia, unspecified; D50.9 Iron deficiency anemia, unspecified; Z95.0 Presence of cardiac pacemaker; Z99.89 Dependence on other enabling machines and devices; Z90.49 Acquired absence of other specified parts of digestive tract; Z90.710 Acquired absence of both cervix and uterus; Z79.82 Long term (current) use of aspirin; Z79.4 Long term (current) use of insulin; Z79.899 Other long term (current) drug therapy; Z91.19 Patient's noncompliance with other medical treatment and regimen; Z68.39 Body mass index [BMI] 39.0-39.9, adult
CPT/HCPCS: 36415; 71045; 71046; 71250; 80048; 82550; 82728; 82948; 83036; 83540; 83550; 83605; 83880; 84145; 84439; 84443; 84484; 85025; 85610; 85730; 87486; 87581; 87633; 87798; 87804; 93005; 94640; 94664; 94667; 94668; 96372; 96374; 96376; G0378; J1644; J1815; J1940; J2930; J7509

== ENCOUNTER 2019-10-26 11:30 | Emergency (ER) | payer OTHER, MEDICARE ==
[~2019-10-26 11:30] MED LIST changes: +DOCU-275 PO; +FERR324T4 PO; -GLIP10TA9 PO; +HYDR12.530 PO; -INSLAN SQ; +INSU3INS3 SQ; +PRED20TA3 PO
[2019-10-26 12:01] LABS: BASOPHILS % (AUTO) 0.5 % (0.0-5.0); EOSINOPHILS % (AUTO) 2.4 % (0.0-8.0); HEMATOCRIT 32.6 % (36-48); LYMPHOCYTES % (AUTO) 31.4 % (21.0-51.0); MEAN CORPUSCULAR HEMOGLOBIN 27.1 pg (27.0-33.0); MEAN CORPUSCULAR HGB CONC 32.6 g/dL (32.0-36.0); MEAN CORPUSCULAR VOLUME 83.4 fL (79-99); MONOCYTES % (AUTO) 7.5 % (3.0-13.0); NEUTROPHILS % (AUTO) 58.2 % (40.0-77.0); PLATELET COUNT (AUTO) 210 K/uL (130-400); RED BLOOD CELL COUNT(AUTO) 3.91 MIL/uL (4.00-5.50); WHITE BLOOD COUNT (AUTO) 4.9 K/uL (4.8-10.8)
[2019-10-26 12:12] LABS: BILIRUBIN,TOTAL 0.3 mg/dL (0.2-1.0); POTASSIUM 3.8 mmol/L (3.5-5.1)
[2019-10-26 12:14] LABS: B-TYPE NATRIURETIC PEPTIDE 337 pg/mL (0-100)
[2019-10-26 13:17] LABS: APPEARANCE,URINE Clear (CLEAR); BILIRUBIN,URINE Negative (NEGATIVE); COLOR,URINE Yellow (YELLOW); GLUCOSE, URINE (UA) Negative (NEGATIVE); KETONES,URINE Negative (NEGATIVE); LEUKOCYTE ESTERASE ,URINE Negative (NEGATIVE); NITRATE,URINE Negative (NEGATIVE); OCCULT BLOOD,URINE Negative (NEGATIVE); PH,URINE 7.5 (5.0-8.0); PROTEIN,URINE Negative (NEGATIVE); UROBILINOGEN,URINE 0.2 mg/dL (0.2-1.0)
== END 2019-10-26 13:46 | disposition home or self-care (01) ==
LOC: EDH 11:30
DX: R05 Cough (principal); E11.9 Type 2 diabetes mellitus without complications; E78.5 Hyperlipidemia, unspecified; I11.0 Hypertensive heart disease with heart failure; I50.9 Heart failure, unspecified; Z98.890 Other specified postprocedural states; Z90.710 Acquired absence of both cervix and uterus; Z90.49 Acquired absence of other specified parts of digestive tract; Z95.0 Presence of cardiac pacemaker
CPT/HCPCS: 36415; 71045; 80053; 81003; 82550; 83880; 84484; 85025; 87804; 93005

== ENCOUNTER 2019-12-28 16:56 | Emergency (ER) | payer OTHER, MEDICARE ==
[~2019-12-28 16:56] MED LIST changes: +ACET325C6 PO; +ASCO500C6 PO; +B12/1TAB PO; +DICL50TA9 PO; +FURO40TA7 PO; +MULT-30 PO; +OMEG-148 PO; -ONDA4TAB10 PO; -PRED20TA3 PO; +VERA120T13 PO
[2019-12-28] MEDS ORDERED: METHYLPREDNISOLONE SOD SUCC 40MG/ML 1ML ONE (17:19)
[2019-12-28] MEDS ORDERED: LORAZEPAM 2 MG/ML 1 ML VIAL ONE (17:19)
[2019-12-28 17:25] LABS: BASOPHILS % (AUTO) 0.5 % (0.0-5.0); EOSINOPHILS % (AUTO) 1.1 % (0.0-8.0); HEMATOCRIT 34.8 % (36-48); LYMPHOCYTES % (AUTO) 27.7 % (21.0-51.0); MEAN CORPUSCULAR HEMOGLOBIN 26.4 pg (27.0-33.0); MEAN CORPUSCULAR HGB CONC 31.6 g/dL (32.0-36.0); MEAN CORPUSCULAR VOLUME 83.5 fL (79-99); MONOCYTES % (AUTO) 4.6 % (3.0-13.0); NEUTROPHILS % (AUTO) 65.8 % (40.0-77.0); PLATELET COUNT (AUTO) 298 K/uL (130-400); RED BLOOD CELL COUNT(AUTO) 4.17 MIL/uL (4.00-5.50); RED CELL DISTRIBUTION WIDTH 15.1 % (11.0-15.5); WHITE BLOOD COUNT (AUTO) 10.9 K/uL (4.8-10.8)
[2019-12-28 17:35] LABS: CREATININE 1.4 mg/dL (0.5-1.5); POTASSIUM 4.7 mmol/L (3.5-5.1)
[2019-12-28] MEDS ORDERED: IPRATROPIUM/ALBUTEROL SULFATE 3 ML SOLUTION IH ONE (18:16)
[2019-12-28] MEDS ORDERED: FUROSEMIDE 10 MG/ML 4ML VIAL ONE (18:47)
== END 2019-12-28 20:36 | disposition home or self-care (01) ==
LOC: EDH 16:56
DX: J45.41 Moderate persistent asthma with (acute) exacerbation (principal); I50.23 Acute on chronic systolic (congestive) heart failure; F43.20 Adjustment disorder, unspecified; R06.00 Dyspnea, unspecified
CPT/HCPCS: 36415; 71045; 80048; 82550; 83880; 84484 ×2; 85025; 93005 ×2; 94640; 96374; 96375; 99285; J1940; J2060; J2920

== ENCOUNTER → 2019-12-30 | Outpatient (CLI) | payer OTHER, MEDICARE | END | disposition home or self-care (01) | LOC: SHCH 14:48 | PROVIDERS: ATTEND Internal Medicine Cardiovascular Disease | DX: I25.10 Atherosclerotic heart disease of native coronary artery without angina pectoris (principal) | CPT/HCPCS: 93306; 93356 ==

== ENCOUNTER → 2020-06-12 | Outpatient (CLI) | payer OTHER, MEDICARE ==
[~2020-06-12] MED LIST changes: -ASPI-555 PO; +ASPI-556 PO
== END | disposition home or self-care (01) ==
LOC: RAH 10:36
PROVIDERS: ATTEND Family Medicine
DX: Z12.31 Encounter for screening mammogram for malignant neoplasm of breast (principal)
CPT/HCPCS: 77067

== ENCOUNTER → 2021-05-14 | Outpatient (CLI) | payer OTHER, MEDICARE | END | disposition home or self-care (01) | LOC: SHCH 12:44 | PROVIDERS: ATTEND Internal Medicine Cardiovascular Disease | DX: I10 Essential (primary) hypertension (principal); I25.119 Atherosclerotic heart disease of native coronary artery with unspecified angina pectoris | CPT/HCPCS: 93306; 93356 ==

== ENCOUNTER → 2021-06-14 | Outpatient (CLI) | payer OTHER, MEDICARE | END | disposition home or self-care (01) | LOC: RAH 09:37 | PROVIDERS: ATTEND Family Medicine | DX: Z12.31 Encounter for screening mammogram for malignant neoplasm of breast (principal); Z00.01 Encounter for general adult medical examination with abnormal findings | CPT/HCPCS: 77067 ==

== ENCOUNTER → 2022-10-11 | Outpatient (CLI) | payer MEDICARE ==
[~2022-10-11] MED LIST changes: +DOCU-270 PO; -DOCU-275 PO; -VERA120T13 PO; +VERA120T92 PO
== END | disposition home or self-care (01) ==
LOC: SHCH 13:11
PROVIDERS: ATTEND Internal Medicine Cardiovascular Disease
DX: K12.0 Recurrent oral aphthae (principal); G45.9 Transient cerebral ischemic attack, unspecified
CPT/HCPCS: 93880

== ENCOUNTER → 2023-01-09 | Outpatient (CLI) | payer OTHER, MEDICARE ==
[2023-01-09 16:23] LABS: POTASSIUM 4.6 mmol/L (3.5-5.1)
== END | disposition home or self-care (01) ==
LOC: LAB 13:19
PROVIDERS: ATTEND Internal Medicine Cardiovascular Disease
DX: I10 Essential (primary) hypertension (principal); E78.5 Hyperlipidemia, unspecified
CPT/HCPCS: 36415; 80048; 83880

== ENCOUNTER → 2023-01-30 | Outpatient (CLI) | payer MEDICARE ==
[2023-01-30 16:37] LABS: CREATININE 1.9 mg/dL (0.5-1.5); POTASSIUM 4.1 mmol/L (3.5-5.1)
== END | disposition home or self-care (01) ==
LOC: LAB 13:05
PROVIDERS: ATTEND Internal Medicine Cardiovascular Disease
DX: I10 Essential (primary) hypertension (principal)
CPT/HCPCS: 36415; 80048

== ENCOUNTER → 2023-02-23 | Outpatient (CLI) | payer MEDICARE | END | disposition home or self-care (01) | LOC: LAB 12:52 | PROVIDERS: ATTEND Internal Medicine Cardiovascular Disease | DX: I10 Essential (primary) hypertension (principal); E78.5 Hyperlipidemia, unspecified | CPT/HCPCS: 36415; 83880 ==

== ENCOUNTER → 2023-07-07 | Outpatient (CLI) | payer MEDICARE | END | disposition home or self-care (01) | LOC: RAH 08:35 | PROVIDERS: ATTEND Family Medicine | DX: Z12.31 Encounter for screening mammogram for malignant neoplasm of breast (principal); R92.1 Mammographic calcification found on diagnostic imaging of breast | CPT/HCPCS: 77067 ==

== ENCOUNTER 2023-12-07 07:31 | Day surgery (SDC) | payer MEDICARE ==
[2023-12-07] VITALS (11 sets, daily range): BP systolic 119–167; BP diastolic 55–80; PULSE 65–77; RESP 14–16
[~2023-12-07 07:31] MED LIST changes: -ACET325C6 PO; +AEC81 PO; -ASCO500C6 PO; -ASPI-556 PO; -ATEN100T PO; +ATOR40TA69 PO; -B12/1TAB PO; +CARV6.25 PO; -DICL2100G TP; -DICL50TA9 PO; -DOCU-270 PO; +DULA0.75 SQ; -ESOM40CA54 PO; -FERR324T4 PO; -FLUTICASONE PROP EN; -FURO40TA7 PO; +GLIP5TAB15 PO; -HYDR-3420 PO; -HYDR12.530 PO; +INSU100V37 SQ; -INSU3INS3 SQ; +MECL-302 PO; -METF-445 PO; -MULT-30 PO; -MVIT PO; +NAPR500T6 PO; -OMEG-148 PO; -OMEG1CAP6 PO; +SACU1TAB PO; -SIMV-43 PO; -SITA100T12 PO; +TORS20TA4 PO; -VERA120T92 PO
[2023-12-07 09:28] LABS: BASOPHILS # (AUTO) 0.03 K/uL (0.00-0.20); BASOPHILS % (AUTO) 0.4 % (0.0-5.0); EOSINOPHILS # (AUTO) 0.17 K/uL (0.00-0.70); EOSINOPHILS % (AUTO) 2.1 % (0.0-8.0); HEMATOCRIT 31.7 % (36-48); IMMATURE GRANULOCYTE ABSOLUTE 0.03 K/uL (0-1); LYMPHOCYTES # (AUTO) 1.7 K/uL (1.0-4.8); LYMPHOCYTES % (AUTO) 20.4 % (21.0-51.0); MEAN CORPUSCULAR HEMOGLOBIN 29.2 pg (27.0-33.0); MEAN CORPUSCULAR HGB CONC 31.5 g/dL (32.0-36.0); MEAN CORPUSCULAR VOLUME 92.7 fL (79-99); MONOCYTES # (AUTO) 0.5 K/uL (0.1-1.0); MONOCYTES % (AUTO) 6.2 % (3.0-13.0); NEUTROPHILS # (AUTO) 5.9 K/uL (1.8-7.7); NEUTROPHILS % (AUTO) 70.5 % (40.0-77.0); PLATELET COUNT (AUTO) 201 K/uL (130-400); RED BLOOD CELL COUNT(AUTO) 3.42 MIL/uL (4.00-5.50); WHITE BLOOD COUNT (AUTO) 8.3 K/uL (4.8-10.8)
[2023-12-07 09:31] LABS: CREATININE 1.4 mg/dL (0.5-1.5)
[2023-12-07 09:36] LABS: ALBUMIN 3.2 g/dL (3.5-5.0); BILIRUBIN,TOTAL 0.4 mg/dL (0.2-1.0); TOTAL PROTEIN, SERUM 6.2 g/dL (6.0-8.3)
[2023-12-07 09:55] LABS: INR 0.99 (0.85-1.15); PROTHROMBIN TIME 11.5 SEC (9.6-11.6)
[2023-12-07 09:56] LABS: PARTIAL THROMBOPLASTIN TIME 27.8 SEC (26.3-35.5)
[2023-12-07] MEDS ORDERED: LIDOCAINE HCL 1% 20 ML VIAL ONE (11:56)
[2023-12-07] MEDS ORDERED: PROPOFOL 10 MG/ML 20ML VIAL IV ONE (11:56)
== END 2023-12-07 13:25 | disposition home or self-care (01) ==
LOC: ENDO 07:31 → DAH 07:31 → ENDO 13:25
PROVIDERS: ATTEND Internal Medicine Gastroenterology
DX: Z12.11 Encounter for screening for malignant neoplasm of colon (principal); K57.30 Diverticulosis of large intestine without perforation or abscess without bleeding; K63.89 Other specified diseases of intestine; Z86.010 Personal history of colon polyps; Z80.0 Family history of malignant neoplasm of digestive organs; E11.9 Type 2 diabetes mellitus without complications; I10 Essential (primary) hypertension; K44.9 Diaphragmatic hernia without obstruction or gangrene; E78.5 Hyperlipidemia, unspecified; M06.9 Rheumatoid arthritis, unspecified; Z95.0 Presence of cardiac pacemaker; Z82.49 Family history of ischemic heart disease and other diseases of the circulatory system; Z83.3 Family history of diabetes mellitus; Z79.51 Long term (current) use of inhaled steroids; Z79.4 Long term (current) use of insulin; Z79.82 Long term (current) use of aspirin; Z79.84 Long term (current) use of oral hypoglycemic drugs; Z79.899 Other long term (current) drug therapy; Z90.49 Acquired absence of other specified parts of digestive tract; Z98.890 Other specified postprocedural states
CPT/HCPCS: 80053; 85025; 85610; 85730; 82948; 36415; J2704; A4620; G0105; A4215 ×2; A4223; A4657; A7002; A4222; A4221; A4663; J7030; A4606; 86677; G0121; J3490

== ENCOUNTER → 2024-01-25 | Outpatient (CLI) | payer MEDICARE | END | disposition home or self-care (01) | LOC: CANSCHCLI → RAH 08:25 | PROVIDERS: ATTEND Internal Medicine Gastroenterology | DX: K57.90 Diverticulosis of intestine, part unspecified, without perforation or abscess without bleeding (principal); R93.3 Abnormal findings on diagnostic imaging of other parts of digestive tract; Z90.49 Acquired absence of other specified parts of digestive tract; Z86.010 Personal history of colon polyps | CPT/HCPCS: 74270 ==

== ENCOUNTER 2024-02-29 09:17 | Emergency (ER) | payer MEDICARE ==
[~2024-02-29] VITALS: Ht 157.5 cm; Wt 104.3 kg
[2024-02-29 09:42] LABS: BASOPHILS # (AUTO) 0.03 K/uL (0.00-0.20); BASOPHILS % (AUTO) 0.4 % (0.0-5.0); EOSINOPHILS # (AUTO) 0.06 K/uL (0.00-0.70); EOSINOPHILS % (AUTO) 0.7 % (0.0-8.0); HEMATOCRIT 33.4 % (36-48); IMMATURE GRANULOCYTE ABSOLUTE 0.03 K/uL (0-1); LYMPHOCYTES # (AUTO) 1.5 K/uL (1.0-4.8); LYMPHOCYTES % (AUTO) 18.1 % (21.0-51.0); MEAN CORPUSCULAR HEMOGLOBIN 29.8 pg (27.0-33.0); MONOCYTES # (AUTO) 0.5 K/uL (0.1-1.0); NEUTROPHILS # (AUTO) 6.1 K/uL (1.8-7.7); NEUTROPHILS % (AUTO) 74.4 % (40.0-77.0); PLATELET COUNT (AUTO) 173 K/uL (130-400); RED BLOOD CELL COUNT(AUTO) 3.59 MIL/uL (4.00-5.50); RED CELL DISTRIBUTION WIDTH 14.2 % (11.0-15.5); WHITE BLOOD COUNT (AUTO) 8.2 K/uL (4.8-10.8)
[2024-02-29 09:50] LABS: CREATININE 1.8 mg/dL (0.5-1.0); POTASSIUM 3.6 mmol/L (3.5-5.1)
[2024-02-29 09:55] LABS: BILIRUBIN,TOTAL 0.7 mg/dL (0.2-1.0); TOTAL PROTEIN, SERUM 6.1 g/dL (6.0-8.3)
[2024-02-29 10:01] LABS: SARS-CoV-2, RNA, NAAT NEGATIVE SARS CoV-2 (NEGATIVE)
[2024-02-29 10:06] LABS: INFLUENZA TYPE A Negative For Type A (NEGATIVE); INFLUENZA TYPE B Negative For Type B (NEGATIVE)
[2024-02-29 10:07] LABS: B-TYPE NATRIURETIC PEPTIDE 1090 pg/mL (0-100)
[2024-02-29 10:13] LABS: APPEARANCE,URINE CLEAR (CLEAR); BILIRUBIN,URINE NEGATIVE (NEGATIVE); COLOR,URINE LIGHT-YELLOW (YELLOW); GLUCOSE, URINE (UA) NEGATIVE (NEGATIVE); KETONES,URINE NEGATIVE (NEGATIVE); LEUKOCYTE ESTERASE ,URINE NEGATIVE Leu/uL (NEGATIVE); NITRATE,URINE NEGATIVE (NEGATIVE); OCCULT BLOOD,URINE NEGATIVE (NEGATIVE); PROTEIN,URINE NEGATIVE (NEGATIVE); UROBILINOGEN,URINE 0.2 mg/dL (0.2-1.0)
[2024-02-29 10:19] LABS: RAPID GROUP A STREP positive (NEGATIVE)
[2024-02-29 10:48] LABS: ADD UA MICROSCOPIC NO
[2024-02-29] MEDS: SOLU-MEDROL 125MG VIAL IVP ONE (11:05)
[2024-02-29] MEDS: GUAIFENESIN 600 MG TABLET.ER PO ONE (11:05)
[2024-02-29] MEDS: IPRATROPIUM/ALBUTEROL SULFATE 3 ML SOLUTION IH ONE (11:11)
[2024-02-29 11:14] VITALS: PULSE 70; RESP 18
[2024-02-29] MEDS: CEFTRIAXONE 2GM VIAL IVPB ONE (13:07)
[2024-02-29] MEDS: FUROSEMIDE 40MG VIAL IV ONE (13:07)
[2024-02-29 13:08] VITALS: BP 149/68; PULSE 75; RESP 18; O2SAT 97
[2024-02-29] MEDS ORDERED: PENI500T2 PO (13:42)
[2024-02-29] MEDS ORDERED: FURO-152 PO (13:42)
[2024-02-29] MEDS ORDERED: AUD IH (13:42)
[2024-02-29] MEDS ORDERED: ALBUHFA IH (13:42)
== END 2024-02-29 14:04 | disposition home or self-care (01) ==
LOC: EDH 09:17
DX: I11.0 Hypertensive heart disease with heart failure (principal); I50.9 Heart failure, unspecified; E11.9 Type 2 diabetes mellitus without complications; J44.9 Chronic obstructive pulmonary disease, unspecified; Z90.49 Acquired absence of other specified parts of digestive tract; Z90.710 Acquired absence of both cervix and uterus; Z20.822 Contact with and (suspected) exposure to COVID-19
CPT/HCPCS: 99285; 96365; 71045; 96375; 87635; 84484; 80053; 83880; 85025; 87040 ×2; 87880; 87804 ×2; 83605; 81003; 36415; 93005; 94640; J2930; J0696; J1940

== ENCOUNTER 2024-03-10 06:42 | Emergency (ER) | payer MEDICARE ==
[~2024-03-10 06:42] MED LIST changes: -AEC81 PO; +ALBUHFA IH; -ATOR40TA69 PO; +AUD IH; -CARV6.25 PO; -DULA0.75 SQ; +FURO-152 PO; -GLIP5TAB15 PO; -INSU100V37 SQ; -MECL-302 PO; -NAPR500T6 PO; +PENI500T2 PO; -SACU1TAB PO; -TORS20TA4 PO; -TRAM50TA4 PO
[2024-03-10 07:38] LABS: HEMATOCRIT 32.7 % (36-48); MEAN CORPUSCULAR HEMOGLOBIN 29.4 pg (27.0-33.0); MEAN CORPUSCULAR HGB CONC 32.7 g/dL (32.0-36.0); MEAN CORPUSCULAR VOLUME 89.8 fL (79-99); PLATELET COUNT (AUTO) 159 K/uL (130-400); RED BLOOD CELL COUNT(AUTO) 3.64 MIL/uL (4.00-5.50); RED CELL DISTRIBUTION WIDTH 14.2 % (11.0-15.5); WHITE BLOOD COUNT (AUTO) 7.2 K/uL (4.8-10.8)
[2024-03-10 07:45] LABS: CREATININE 1.6 mg/dL (0.5-1.0); POTASSIUM 3.5 mmol/L (3.5-5.1)
[2024-03-10 07:46] LABS: BASOPHILS # (AUTO) 0.02 K/uL (0.00-0.20); BASOPHILS % (AUTO) 0.3 % (0.0-5.0); EOSINOPHILS # (AUTO) 0.04 K/uL (0.00-0.70); EOSINOPHILS % (AUTO) 0.6 % (0.0-8.0); IMMATURE GRANULOCYTE ABSOLUTE 0.02 K/uL (0-1); LYMPHOCYTES # (AUTO) 1.6 K/uL (1.0-4.8); LYMPHOCYTES % (AUTO) 22.6 % (21.0-51.0); MONOCYTES # (AUTO) 0.4 K/uL (0.1-1.0); MONOCYTES % (AUTO) 5.5 % (3.0-13.0); NEUTROPHILS % (AUTO) 70.7 % (40.0-77.0)
[2024-03-10 07:47] LABS: INR <= 0.93 (0.85-1.15)
[2024-03-10 07:48] LABS: PARTIAL THROMBOPLASTIN TIME 24.5 SEC (26.3-35.5)
[2024-03-10 07:50] LABS: BILIRUBIN,TOTAL 0.5 mg/dL (0.2-1.0); TOTAL PROTEIN, SERUM 5.7 g/dL (6.0-8.3)
[2024-03-10 07:57] LABS: INFLUENZA TYPE A Negative For Type A (NEGATIVE); INFLUENZA TYPE B Negative For Type B (NEGATIVE)
[2024-03-10] MEDS: DEXAMETHASONE SOD PHOSPHATE 4 MG/ML 1ML VIAL IVP ONE (08:09)
[2024-03-10] MEDS: GUAIFENESIN-CODEINE 5 ML SYRUP PO ONE (08:09)
[2024-03-10 08:10] VITALS: PULSE 71; RESP 19
[2024-03-10] MEDS: IPRATROPIUM/ALBUTEROL SULFATE 3 ML SOLUTION IH ONE (08:19)
[2024-03-10 08:29] LABS: SARS-CoV-2, RNA, NAAT NEGATIVE SARS CoV-2 (NEGATIVE)
[2024-03-10 08:47] LABS: APPEARANCE,URINE CLEAR (CLEAR); BILIRUBIN,URINE NEGATIVE (NEGATIVE); COLOR,URINE LIGHT-YELLOW (YELLOW); GLUCOSE, URINE (UA) NEGATIVE (NEGATIVE); KETONES,URINE NEGATIVE (NEGATIVE); LEUKOCYTE ESTERASE ,URINE NEGATIVE Leu/uL (NEGATIVE); NITRATE,URINE NEGATIVE (NEGATIVE); OCCULT BLOOD,URINE NEGATIVE (NEGATIVE); PROTEIN,URINE 20 mg/dL (NEGATIVE); UROBILINOGEN,URINE 0.2 mg/dL (0.2-1.0)
[2024-03-10 08:48] LABS: ADD UA MICROSCOPIC YES
[2024-03-10 08:50] LABS: BACTERIA,URINE RARE /HPF (None Seen); MUCUS,URINE RARE LPF (None Seen); RBC,URINE 0-1 /HPF (0-1); SQUAMOUS EPITHELIAL CELL,UR FEW /HPF (0-2); WBC,URINE 0-1 /HPF (0-1)
[2024-03-10 10:08] VITALS: BP 170/76; PULSE 70; RESP 19
[2024-03-10] MEDS ORDERED: AZIT500T4 PO (10:12)
[2024-03-10] MEDS ORDERED: GUAI120L62 PO (10:12)
== END 2024-03-10 10:33 | disposition home or self-care (01) ==
LOC: EDH 06:42
DX: J44.1 Chronic obstructive pulmonary disease with (acute) exacerbation (principal); E11.9 Type 2 diabetes mellitus without complications; I11.0 Hypertensive heart disease with heart failure; I50.9 Heart failure, unspecified; Z79.899 Other long term (current) drug therapy; Z90.49 Acquired absence of other specified parts of digestive tract; Z90.710 Acquired absence of both cervix and uterus; Z20.822 Contact with and (suspected) exposure to COVID-19
CPT/HCPCS: 99285; 96374; 71045; 87635; 84484; 80053; 83880; 85025; 85610; 85730; 87804 ×2; 83605; 81001; 36415; 93005; 94640; J1100

== ENCOUNTER → 2024-06-18 | Outpatient (CLI) | payer MEDICARE ==
[~2024-06-18] MED LIST changes: +AZIT500T4 PO; +GUAI120L62 PO
== END | disposition home or self-care (01) ==
LOC: SHCH 11:05
PROVIDERS: ATTEND Internal Medicine Cardiovascular Disease
DX: I87.2 Venous insufficiency (chronic) (peripheral) (principal); Z79.899 Other long term (current) drug therapy
CPT/HCPCS: 93970

== ENCOUNTER → 2024-07-09 | Outpatient (CLI) | payer MEDICARE | END | disposition home or self-care (01) | LOC: RAH 10:49 | PROVIDERS: ATTEND Internal Medicine | DX: Z12.31 Encounter for screening mammogram for malignant neoplasm of breast (principal); R92.323 Mammographic fibroglandular density, bilateral breasts; R92.1 Mammographic calcification found on diagnostic imaging of breast | CPT/HCPCS: 77067 ==

== ENCOUNTER → 2024-10-09 | Outpatient (CLI) | payer MEDICARE ==
[~2024-10-09] MED LIST changes: +ATOR40TA71 PO; +BUDE10.7 IH; +CETI10TA57 PO; +DICL20GE TP; +GLIP5TAB15 PO; +INSU200I4 SQ; +LINA145C PO; +MECL25TA39 PO; +MELO-108 PO; +METO-408 PO; +PANT40TA54 PO; +SACU1TAB PO; +TIRZ5PEN SQ; +TORS20TA4 PO; +TRAM50TA4 PO
[2024-10-09 16:34] LABS: BASOPHILS # (AUTO) 0.05 K/uL (0.00-0.20); BASOPHILS % (AUTO) 0.6 % (0.0-5.0); EOSINOPHILS # (AUTO) 0.09 K/uL (0.00-0.70); EOSINOPHILS % (AUTO) 1.1 % (0.0-8.0); HEMATOCRIT 36.8 % (36-48); IMMATURE GRANULOCYTE ABSOLUTE 0.02 K/uL (0-1); LYMPHOCYTES # (AUTO) 1.8 K/uL (1.0-4.8); MEAN CORPUSCULAR HEMOGLOBIN 30.4 pg (27.0-33.0); MEAN CORPUSCULAR HGB CONC 31.3 g/dL (32.0-36.0); MEAN CORPUSCULAR VOLUME 97.4 fL (79-99); MONOCYTES # (AUTO) 0.6 K/uL (0.1-1.0); MONOCYTES % (AUTO) 7.5 % (3.0-13.0); NEUTROPHILS # (AUTO) 5.4 K/uL (1.8-7.7); NEUTROPHILS % (AUTO) 67.5 % (40.0-77.0); PLATELET COUNT (AUTO) 158 K/uL (130-400); RED BLOOD CELL COUNT(AUTO) 3.78 MIL/uL (4.00-5.50); RED CELL DISTRIBUTION WIDTH 12.4 % (11.0-15.5)
== END | disposition home or self-care (01) ==
LOC: LAB 12:49
PROVIDERS: ATTEND Physician Assistant
DX: I10 Essential (primary) hypertension (principal); I25.10 Atherosclerotic heart disease of native coronary artery without angina pectoris
CPT/HCPCS: 36415; 85025

== ENCOUNTER → 2025-07-10 | Outpatient (CLI) | payer OTHER ==
[~2025-07-10] MED LIST changes: -ALBUHFA IH; +ASPI-1197 PO; -AUD IH; -AZIT500T4 PO; +BENZ200C53 PO; -CETI10TA57 PO; +CETI10TA87 PO; +CLOP75TA32 PO; -DICL20GE TP; +FLUT15.845 NS; -FURO-152 PO; -GUAI120L62 PO; -INSU200I4 SQ; +IPRA3AMP24 NEB; -LINA145C PO; +MECL-226 PO; -MECL25TA39 PO; -PENI500T2 PO; +PREN1TAB80 PO; -TIRZ5PEN SQ; +TRAM100C3 PO; -TRAM50TA4 PO; +VITAD50000 PO
== END | disposition home or self-care (01) ==
LOC: RAH 12:18
PROVIDERS: ATTEND Internal Medicine
DX: Z12.31 Encounter for screening mammogram for malignant neoplasm of breast (principal)
CPT/HCPCS: 77067